=== PATIENT | male | born 1950 | race Caucasian/White ===

== ENCOUNTER 2017-12-06 17:53 | Emergency (ER) | payer MEDICARE, BC, SELFPAY ==
[2017-12-06 17:54] VITALS: BP 157/79; PULSE 64; RESP 18; TEMP 36.7; O2SAT 98; BMI 32.1
[2017-12-06 18:50] LABS: International Normalized Ratio 2.6; Prothrombin Time (Protime)PT. 27.6 SECONDS (11.7-14.9)
--- NOTE | 2017-12-06 19:03 | ED.VISSUMM ---
- ER Visit Summary Date of Service: 12/06/17 Chief Complaint: Head injury History of Present Illness: The patient is a 67 M who states that he was working in the garage when he cut the top of his head on the middle arm of the garage door. No loss of consciousness. Tetanus was 5-7 years ago. He is on Coumadin for aortic valve replacement Physical Examination: Afebrile vital signs are stable There is a 3.5 cm linear laceration orientated anterior to posterior at the vertex of the scalp. There is no bony depression. He is neurologically intact Test Results: INR 2.6 Emergency Department Course and Treatment: Wound was locally anesthetized using 1% lidocaine washed with Shur-Clens and explored and then closed using a total of #7 interrupted 5-0 Ethilon sutures. Wound care discussed with patient. Follow-up 5-7 days for suture removal Impression: 1. 3.5 cm scalp laceration with repair 2. Coumadin coagulopathy This note was generated with [employer] dictation software. It may contain incorrect words, spelling, and punctuation that were not noted in review of the chart prior to signing ED Disposition - Plan for ED Patient: Disposition: Home or Assisted Living Chief Complaint: Laceration Instructions: ED Laceration Scalp Stitch Or Stap Additional Instructions: Sutures need to be removed in 5-7 days please schedule appointment with your doctor Your INR today was 2.6.
[2017-12-06 19:08] VITALS: PULSE 80; RESP 16
== END 2017-12-06 19:08 | disposition home or self-care (01) ==
PROVIDERS: Emergency Provider Emergency Medicine
DX: S01.01XA Laceration without foreign body of scalp, initial encounter (principal); R40.2410 Glasgow coma scale score 13-15, unspecified time; W26.8XXA Contact with other sharp object(s), not elsewhere classified, initial encounter; Y93.9 Activity, unspecified; Y92.9 Unspecified place or not applicable; R79.1 Abnormal coagulation profile; Z79.01 Long term (current) use of anticoagulants; Z95.2 Presence of prosthetic heart valve
CPT/HCPCS: 12002; 36415; 85610; 99283